=== PATIENT | male | born 1970 | race American Indian/Alaskan Native ===

== ENCOUNTER 2017-04-09 16:22 | Emergency (ER) | payer OTHER ==
[2017-04-09 16:32] VITALS: RESP 18; O2SAT 99
[2017-04-09 17:41] LABS: BASO % 0.6 % (0.0-2.0); EOS # 0.1 K/uL (0.0-0.7); EOS % 0.7 % (0.0-4.0); HEMOGLOBIN 16.9 g/dL (12.0-18.0); MEAN CELL VOLUME 82.2 fL (80.0-94.0); MEAN CORPUSCULAR HEMOGLOBIN 28.8 pg (27.0-31.0); MEAN CORPUSCULAR HGB CONC 35.1 g/dL (33.0-37.0); MONO # 0.7 K/uL (0.0-0.8); MONO % 9.8 % (0.0-10.0); NEUT # 3.3 K/uL (1.8-7.0); NEUT % 46.9 % (50.0-75.0); NRBC % 0.1 % (0.0-2.0); RBC 5.87 Mil/uL (4.40-5.90); RED CELL DISTRIBUTION WIDTH 14.1 % (11.5-14.5); WHITE BLOOD COUNT 7.1 K/uL (4.8-10.8)
[2017-04-09 17:49] LABS: ALB/GLOB RATIO 1.3 (1.0-2.1); ALBUMIN 4.5 g/dL (3.5-5.0); ALT/SGPT 30 U/L (21-72); AST/SGOT 26 U/L (17-59); BLOOD UREA NITROGEN 17 mg/dL (9-20); CALCIUM 9.3 mg/dl (8.6-10.4); GFR AFRICAN-AMERICAN > 60; GFR NON-AFRICAN AMERICAN > 60
--- NOTE | 2017-04-09 18:11 | C.PDOC ---
History Of Present Illness 46 year old male presents to ED for evaluation of possible lymph nodes in the left upper abdomen region. Pt is unsure of how long the lumps have been present for. Denies fever, chills, n/v/d, shortness of breath, or trauma. Chief Complaint (Nursing): Abnormal Skin Integrity History Per: Patient History/Exam Limitations: no limitations Onset/Duration Of Symptoms: Days Current Symptoms Are (Timing): Still Present Location Of Injury: Left: Abdomen Recent travel outside of the [place]: No Additional History Per: Patient Past Medical History Reviewed: Historical Data, Nursing Documentation, Vital Signs Vital Signs: Last Vital Signs Temp 99 F 04/09/17 18:52 Pulse 68 04/09/17 18:52 Resp 18 04/09/17 18:52 BP 150/112 H 04/09/17 18:52 Pulse Ox 99 04/09/17 18:52 - Medical History PMH: HTN Family History: States: Unknown Family Hx - Social History Hx Alcohol Use: Yes Hx Substance Use: No - Immunization History Hx Tetanus Toxoid Vaccination: No Hx Influenza Vaccination: No Hx Pneumococcal Vaccination: No Review Of Systems Except As Marked, All Systems Reviewed And Found Negative. Constitutional: Negative for: Fever, Chills Cardiovascular: Negative for: Chest Pain Respiratory: Negative for: Cough, Shortness of Breath Gastrointestinal: Positive for: Other (lump to left upper abdomen). Negative for: Nausea, Vomiting, Diarrhea Physical Exam - Physical Exam Appears: Non-toxic, No Acute Distress Skin: Warm, Dry, Other (subcutaneous nodules to left upper abdomen) Head: Atraumatic, Normacephalic Eye(s): bilateral: Normal Inspection Oral Mucosa: Moist Cardiovascular: Rhythm Regular Respiratory: Normal Breath Sounds, No Rales, No Rhonchi, No Wheezing Gastrointestinal/Abdominal: Soft, No Tenderness Extremity: Normal ROM, No Deformity Neurological/Psych: Oriented x3, Normal Speech ED Course And Treatment - Laboratory Results Result Diagrams: 04/09/17 17:28 04/09/17 17:28 O2 Sat by Pulse Oximetry: 99 (RA) Pulse Ox Interpretation: Normal Medical Decision Making Medical Decision Making: Plan: Blood work Disposition - Disposition Referrals: Estelita Harvey MD [Staff Provider] - Disposition: HOME/ ROUTINE Disposition Time: 18:00 Condition: GOOD Additional Instructions: Thank you for letting us take care of you today. The emergency medical care you received today was directed at your acute symptoms. If you were prescribed any medication, please fill it and take as directed. It may take several days for your symptoms to resolve. Return to the Emergency Department if your symptoms worsen, do not improve, or if you have any other problems. Please contact your doctor or call one of the physicians/clinics you have been referred to that are listed on the Patient Visit Information form that is included in your discharge packet. Bring any paperwork you were given at discharge with you along with any medications you are taking to your follow up visit. Our treatment cannot replace ongoing medical care by a primary care provider (PCP) outside of the emergency department. Thank you for allowing the [facility] team to be part of your care today. Follow up with your doctor in 3-4 days for re-evaluation and further management. Instructions: Normal Exam (ED) Forms: [employer] (Romanian) - Clinical Impression Clinical Impression: Skin lesion - Scribe Statement The provider has reviewed the documentation as recorded by the Ramoneibjeet Fajardo All medical record entries made by the Ramoneibjeet were at my direction and personally dictated by me. I have reviewed the chart and agree that the record accurately reflects my personal performance of the history, physical exam, medical decision making, and the department course for this patient. I have also personally directed, reviewed, and agree with the discharge instructions and disposition.
[2017-04-09 18:54] VITALS: BP 150/112; PULSE 68; TEMP 99
== END 2017-04-09 18:54 | disposition home or self-care (01) ==
LOC: C.ER 16:22
DX: L98.9 Disorder of the skin and subcutaneous tissue, unspecified (principal)

== ENCOUNTER 2017-10-09 18:06 | Emergency (ER) | payer OTHER ==
[2017-10-09 18:13] VITALS: BP 110/75; PULSE 87; RESP 16; TEMP 97.9; O2SAT 96
--- NOTE | 2017-10-09 18:47 | C.PDOC ---
History Of Present Illness 47 yo male come in for evaluation of Left ankle pain developed [employer] while playing basketball. Pt sts, " jumped up and felt pop over the back of my left ankle with instant severe pain". Pt sts, pain is localized over back of Left ankle, worse with ambulation. Denies head injury, LOC, syncope, neck pain, CP, denies obvious deformity, weakness to Left foot, denies sensory or vascular deficits to Left foot. Ambulate to Ed w/assistance of cane. Time Seen by Provider: 10/09/17 18:14 Chief Complaint (Nursing): Lower Extremity Problem/Injury History Per: Patient Onset/Duration Of Symptoms: Sudden Onset Past Medical History Reviewed: Historical Data, Nursing Documentation, Vital Signs Vital Signs: Last Vital Signs Temp 97.9 F 10/09/17 18:09 Pulse 87 10/09/17 18:09 Resp 16 10/09/17 18:09 BP 110/75 10/09/17 18:09 Pulse Ox 96 10/09/17 20:21 - Medical History PMH: HTN Family History: States: Unknown Family Hx - Social History Hx Alcohol Use: Yes Hx Substance Use: No - Immunization History Hx Tetanus Toxoid Vaccination: No Hx Influenza Vaccination: No Hx Pneumococcal Vaccination: No Review Of Systems Except As Marked, All Systems Reviewed And Found Negative. Constitutional: Negative for: Fever, Chills Eyes: Negative for: Vision Change Cardiovascular: Negative for: Chest Pain Genitourinary: Negative for: Incontinence Musculoskeletal: Positive for: Foot Pain. Negative for: Neck Pain, Back Pain Skin: Negative for: Lesions, Bruising Neurological: Negative for: Weakness, Numbness, Altered Mental Status, Dizziness Physical Exam - Physical Exam Appears: Well, Non-toxic, No Acute Distress Skin: Normal Color, Warm, No Rash, No Ecchymosis Head: Atraumatic, Normacephalic Eye(s): bilateral: PERRL Neck: Trachea Midline, No Midline Cervical Tenderness, No Paracervical Tenderness, No Step Off Deformity, Supple Chest: Symmetrical, No Deformity, No Tenderness Back: No Vertebral Tenderness, No Paraspinal Tenderness Extremity: Normal ROM (unable to flex left ankle), Tenderness (posterior aspectleft ankle. (+) Hernandez sign Left ankle), No Calf Tenderness (left), Capillary Refill (lesst than 2sec to Left foot), No Deformity (obvious over Left ankle/foot), No Swelling Pulses: Left Dorsalis Pedis: Normal Neurological/Psych: Oriented x3, Normal Speech, Normal Motor, Normal Sensation, Normal Reflexes ED Course And Treatment O2 Sat by Pulse Oximetry: 96 Pulse Ox Interpretation: Normal - CT Scan/US CT Left ankle w/o contrast Other Rad Studies (CT/US): Radiology Report Reviewed CT/US Interpretation: EXAM: CT Left Lower Extremity Without Intravenous Contrast. CLINICAL HISTORY: 47 years old, male; Pain; Ankle and foot and heel ; Left; Additional info: Left posterior ankle pain R/O. achilles rupture. TECHNIQUE: Axial computed tomography images of the left lower extremity without intravenous contrast. All CT. scans at this facility use at least one of these dose optimization techniques: automated exposure. control; mA and/or kV adjustment per patient size (includes targeted exams where dose is matched to. clinical indication); or iterative reconstruction. Coronal and sagittal reformatted images were created and reviewed. COMPARISON: No relevant prior studies available. FINDINGS: Bones/joints: Ankle mortise is intact. There is no fracture, dislocation, or destructive osseous lesion. The joint spaces are slightly narrowed with mild adaptive sclerotic changes of the subchondral region. of the ankle joint in keeping with age. Soft tissues: There is mild irregularity thickening in association with the Achilles tendon with mild. adjacent stranding. No tendon rupture suggested. Tendon thickness approximately 7 mm. There is. abnormal density characteristics associated with the posterior tibialis tendon but could be associated. with moderate tendinopathy. This suboptimally be assessed but MRI. IMPRESSION: The Achilles tendon is slightly inflamed proximally but shows no evidence of rupture, or significant. enlargement. Moderate thickening of the tibialis posterior tendon and medial ankle without signs of rupture. Tendinopathy not excluded. No bony lesions or acute fracture is seen. Consider correlation with MRI of the foot for more definitive assessment if clinically warranted. Progress Note: On re-evaluation, pt is afebrile, hemodynamicaly stable. NOn- toxic. LLE: tenderness over Left posterior ankle with (+) Hernandez sign. NO neurovascular deficits distally to injury, no obvious deformity. CT Left ankle review. Long posterior fiberglass splint applied to Left leg. Crutches provided. results review and discussed with pt. Ref. to f/u with Ortho in 1-2 days for re-evaluation. Orthopedic Time Performed: 18:45 Time Out: Side verified, Site verified, Patient ID confirmed Procedure: Splint Type: Long, Posterior Other:: Leg Location: Left, Leg Consent obtained: Verbal Performed by: Attending Physician Other:: Achilles rupture Type: Closed Location: Right Disposition Counseled Patient/Family Regarding: Studies Performed, Diagnosis, Need For Followup, Rx Given - Disposition Referrals: Tal Benton MD [Staff Provider] - Yogi Simmons III, MD [Staff Provider] - Disposition: HOME/ ROUTINE Disposition Time: 18:46 Condition: STABLE Additional Instructions: Splint Take pain medication Follow up with Orthopedist in 2-3 days for re-evaluation. return to ED if any worsening or new changes. Prescriptions: traMADol [Ultram] 50 mg PO TID #7 tab Instructions: Achilles Tendon Rupture Forms: [facility] (Malaysian), Work Excuse - Clinical Impression Clinical Impression: Achilles rupture
--- NOTE | 2017-10-10 09:11 | CT ---
Date of service: 10/09/2017 PROCEDURE: CT left ankle HISTORY: Left posterior ankle pain r/o Achilles rupture COMPARISON: None available TECHNIQUE: 2.5 mm contiguous axial sections were acquired through the left ankle. Sagittal and coronal images were reformatted from the axial scan. FINDINGS: There is no fracture. The ankle mortise is preserved. The articular surfaces are smooth. Normal alignment is maintained. The subtalar articulations are unremarkable. There is partial tear of the Achilles tendon with minimal associated hemorrhage/ edema surrounding. This is of indeterminate chronicity. There is a low musculotendinous junction. There is no evidence of full-thickness Achilles tendon tear. There is mild thickening of the tibialis posterior tendon, consistent with tendinopathy. IMPRESSION: No fracture. Partial tear of Achilles tendon of indeterminate chronicity. Recommend further evaluation with magnetic resonance imaging. Nonspecific tendinopathy of tibialis posterior tendon. The preliminary findings for this examination were reported by [facility] at 8:14 p.m. on 10/09/2017. There is discordance of this report with the preliminary findings. Preliminary report describes no evidence of Achilles tendon rupture.
== END 2017-10-09 20:40 | disposition home or self-care (01) ==
LOC: C.ER 18:06
DX: S86.012A Strain of left Achilles tendon, initial encounter (principal); X50.0XXA Overexertion from strenuous movement or load, initial encounter; Y93.67 Activity, basketball; Y92.39 Other specified sports and athletic area as the place of occurrence of the external cause